=== PATIENT | female | born 1970 | race Two or more races ===

== ENCOUNTER 2016-06-30 21:58 | Emergency (ER) | payer SELFPAY ==
[2016-06-30 22:08] VITALS: BP 107/62; BMI 21.2
[2016-06-30] MEDS ORDERED: NS 1000 ML 1,000 ML ONE (22:44)
[2016-06-30] MEDS ORDERED: NS 1000 ML 1,000 ML IV ONE (22:49)
--- NOTE | 2016-06-30 23:24 | DR.GENAD ---
HPI - PCP Primary Care Physician: NFD - Complaint/Symptoms Chief Complaint Doctors Comments: I agree with statement Chief Complaint:: "Been working in the heat the last couple of days but feels weak and dehydrated. Somtimes I get dizzy and have some tightness in my chest. - Source History Provided: Patient, Other - Mode of Arrival Mode of Arrival: Wheelchair - Timing Onset of Chief Complaint: 06/27/16 PMH - PMH Past Medical History: Yes Past Medical History: Seizures Past Surgical History: No Surgical History: Appendectomy - Family History History of Family Medical Conditions: No - Social History Alcohol Use: None Do you use any recreational Drugs:: No Lives With: Family Lives Where: Home - infectious screening Have you traveled outside the country in the last 6 months?: No ROS - Review of Systems Eyes: No Symptoms Reported ENTM: No Symptoms Reported Respiratoy: No Symptoms Reported Cardiovascular: No Symptoms Reported Gastrointestinal/Abdominal: No Symptoms Reported Genitourinary: No Symptoms Reported Neurological: No Symptoms Reported Musculoskeletal: No Symptoms Reported Integumentary: No Symptoms Reported Hematologic/Lymphatic: No Symptoms Reported Endocrine: No Symptoms Reported Psychiatric: No Symptoms Reported All Other Systems: Reviewed and Negative PE - Vital Signs Vitals: Temperature 98.8 F Pulse Rate 89 Respiratory Rate 18 Blood Pressure 107/62 O2 Sat by Pulse Oximetry 98 - General Limitations: Language Barrier General Appearance: Lethargic - Head Head Exam: Normal Inspection, Atraumatic - Eyes Eye exam: Normal Appearance, PERRL, EOMI - ENT ENT Exam: Normal Exam External Ear Exam: Normal External Inspection TM/Canal Exam: Bilateral Normal Nose Exam: Normal Nose Exam Mouth Exam: Normal Inspection Throat Exam: Normal Inspection - Neck Neck Exam: Normal Inspection - Chest Chest Inspection: Normal Inspection - Respiratory Respiratory Exam: Normal Lung Sounds Bilat Respiratory Exam: Bilateral Clear to Auscultation - Cardiovascular Cardiovascular Exam: Regular Rate - Abdominal Exam Abdominal Exam: Normal Inspection Abdominal Tenderness: negative: RUQ, RLQ, LUQ, LLQ, Epigastrium, Suprapubic, Diffuse, Mild, Moderate, Severe, Other - Extremities Extremities Exam: Normal Inspection, Full ROM - Back Back Exam: Normal Inspection - Neurologic Neurological Exam: Alert, Oriented X3 - Psychiatric Psychiatric Exam: Normal Affect, Normal Mood - Skin Skin Exam: Warm, Dry, Intact ROR - Labs Reviewed Result Diagrams: 06/30/16 23:10 06/30/16 23:10 Laboratory: WBC 11.4 X10^3/uL (3.6-10.0) H 06/30/16 23:10 RBC 4.12 X10^6/uL (3.5-5.4) 06/30/16 23:10 Hgb 11.6 g/dL (12.0-16.0) L 06/30/16 23:10 Hct 35.3 % (36.0-47.0) L 06/30/16 23:10 MCV 85.7 fL (80.0-100.0) 06/30/16 23:10 MCH 28.2 pg (27.0-34.0) 06/30/16 23:10 MCHC 32.9 g/dL (33.0-35.0) L 06/30/16 23:10 RDW 12.6 % (11.6-16.5) 06/30/16 23:10 Plt Count 222 X10^3/uL (150.0-450.0) 06/30/16 23:10 MPV 9.9 fL (7.4-11.0) 06/30/16 23:10 Neut % 72.2 % (42.0-75.0) 06/30/16 23:10 Lymph % 14.3 % (21.0-51.0) L 06/30/16 23:10 Potter % 7.2 % (0.0-13.0) 06/30/16 23:10 Eos % 5.6 % (0.9-2.9) H 06/30/16 23:10 Baso % 0.7 % (0.2-1.0) 06/30/16 23:10 Neut # 8.2 x10^3/uL (2.2-4.8) H 06/30/16 23:10 Lymph # 1.6 X10^3/uL (1.3-2.9) 06/30/16 23:10 Potter # 0.8 x10^3/uL (0.3-0.8) 06/30/16 23:10 Eos # 0.6 x10^3/uL (0.0-0.2) H 06/30/16 23:10 Baso # 0.1 X10^3/uL (0.0-0.1) 06/30/16 23:10 Absolute Nucleated RBC 0.0 /100WBC 06/30/16 23:10 Sodium 141 mmol/L (136-145) 06/30/16 23:10 Corrected Sodium TNP 06/30/16 23:10 Potassium 3.5 mmol/L (3.5-5.1) 06/30/16 23:10 Chloride 107 mmol/L (98-107) 06/30/16 23:10 Carbon Dioxide 24.9 mmol/L (21-32) 06/30/16 23:10 BUN 14 mg/dL (7-18) 06/30/16 23:10 Creatinine 0.55 mg/dL (0.55-1.02) 06/30/16 23:10 Est GFR (MDRD) Af Amer > 60 (>60) 06/30/16 23:10 Est GFR (MDRD) Non-Af > 60 (>60) 06/30/16 23:10 Glucose 103 mg/dL (65-99) H 06/30/16 23:10 Calcium 8.4 mg/dL (8.5-10.1) L 06/30/16 23:10 Corrected Calcium 9.4 mg/dL (8.5-10.1) 06/30/16 23:10 Total Bilirubin 0.20 mg/dL (0.2-1.0) 06/30/16 23:10 AST 15 Units/L (15-37) 06/30/16 23:10 ALT 17 Units/L (12-78) 06/30/16 23:10 Alkaline Phosphatase 85 Units/L (46-116) 06/30/16 23:10 Total Protein 6.7 g/dL (6.4-8.2) 06/30/16 23:10 Albumin 2.8 g/dL (3.4-5.0) L 06/30/16 23:10 Globulin 3.9 g/dL (2.5-4.5) 06/30/16 23:10 Albumin/Globulin Ratio 0.7 Ratio (1.1-2.1) L 06/30/16 23:10 Specimen Type Clean catch urine 07/01/16 00:19 Urine Color Pale yellow (YELLOW) 07/01/16 00:19 Urine Appearance Clear (CLEAR) 07/01/16 00:19 Urine pH 7.0 (5.0 - 8.0) 07/01/16 00:19 Ur Specific [place] 1.010 (1.000-1.030) 07/01/16 00:19 Urine Protein Negative (NEGATIVE) 07/01/16 00:19 Urine Glucose (UA) Negative (NEGATIVE) 07/01/16 00:19 Urine Ketones Negative (NEGATIVE) 07/01/16 00: Urine Occult Blood Negative (NEGATIVE) 07/01/16 00: Urine Nitrite Negative (NEGATIVE) 07/01/16 00: Urine Bilirubin Negative (NEGATIVE) 07/01/16 00: Urine Urobilinogen Normal (NORMAL) 07/01/16 00:19 Ur Leukocyte Esterase Negative (NEGATIVE) 07/01/16 00: Urine RBC 0-3 /HPF (NEGATIVE) 07/01/16 00:19 Urine WBC 0-3 /HPF (NEGATIVE) 07/01/16 00:19 Ur Squamous Epith Cells Rare /HPF (NEGATIVE) 07/01/16 00: Urine Bacteria Negative /HPF (NEGATIVE) 07/01/16 00:19 Ur Culture Indicated? No/not ordered 07/01/16 00:19 - Diagnosis Discharge Problem: Dehydration, mild - Discharge Plan Condition: Stable - Follow ups/Referrals Follow ups/Referrals: NFD,None [Primary Care Provider] - 3 days - Instructions
[2016-06-30 23:25] LABS: BASOPHILS # (AUTO) 0.1 X10^3/uL (0.0-0.1); BASOPHILS % (AUTO) 0.7 % (0.2-1.0); EOSINOPHILS # (AUTO) 0.6 x10^3/uL (0.0-0.2); EOSINOPHILS % (AUTO) 5.6 % (0.9-2.9); HEMATOCRIT 35.3 % (36.0-47.0); HEMOGLOBIN 11.6 g/dL (12.0-16.0); LYMPHOCYTES # (AUTO) 1.6 X10^3/uL (1.3-2.9); LYMPHOCYTES % (AUTO) 14.3 % (21.0-51.0); MEAN CORPUSCULAR HEMOGLOBIN 28.2 pg (27.0-34.0); MEAN CORPUSCULAR HGB CONC 32.9 g/dL (33.0-35.0); MEAN CORPUSCULAR VOLUME 85.7 fL (80.0-100.0); MEAN PLATELET VOLUME 9.9 fL (7.4-11.0); MONOCYTES # (AUTO) 0.8 x10^3/uL (0.3-0.8); MONOCYTES % (AUTO) 7.2 % (0.0-13.0); NEUTROPHILS # (AUTO) 8.2 x10^3/uL (2.2-4.8); NEUTROPHILS % (AUTO) 72.2 % (42.0-75.0); PLATELET COUNT 222 X10^3/uL (150.0-450.0); RED BLOOD COUNT 4.12 X10^6/uL (3.5-5.4); RED CELL DISTRIBUTION WIDTH 12.6 % (11.6-16.5); WHITE BLOOD COUNT 11.4 X10^3/uL (3.6-10.0)
[2016-06-30 23:30] LABS: ALANINE AMINOTRANSFERASE 17 Units/L (12-78); ALBUMIN 2.8 g/dL (3.4-5.0); ALKALINE PHOSPHATASE 85 Units/L (46-116); ASPARTATE AMINO TRANSFERASE 15 Units/L (15-37); BLOOD UREA NITROGEN 14 mg/dL (7-18); CALCIUM 8.4 mg/dL (8.5-10.1); CARBON DIOXIDE 24.9 mmol/L (21-32); CHLORIDE 107 mmol/L (98-107); COR CA(FOR HYPOALB) 9.4 mg/dL (8.5-10.1); CREATININE 0.55 mg/dL (0.55-1.02); GLUCOSE 103 mg/dL (65-99); SODIUM 141 mmol/L (136-145); TOTAL PROTEIN 6.7 g/dL (6.4-8.2); eGFR BLACK RACES > 60 (>60); eGFR NON BLACK RACES > 60 (>60)
[2016-07-01 00:40] LABS: BILIRUBIN,URINE NEGATIVE (NEGATIVE); BLOOD/HEMOGLOBIN,URINE NEGATIVE (NEGATIVE); GLUCOSE, URINE NEGATIVE (NEGATIVE); KETONES,URINE NEGATIVE (NEGATIVE); LEUKOCYTE ESTERASE ,URINE NEGATIVE (NEGATIVE); NITRITES,URINE NEGATIVE (NEGATIVE); PROTEIN,URINE NEGATIVE (NEGATIVE); UROBILINOGEN,URINE NORMAL (NORMAL)
[2016-07-01 00:54] LABS: COLOR,URINE PALE YELLOW (YELLOW)
[2016-07-01 00:55] LABS: APPEARANCE,URINE CLEAR (CLEAR); BACTERIA,URINE NEGATIVE /HPF (NEGATIVE); RBC,URINE 0-3 /HPF (NEGATIVE); SQUAMOUS EPITHELIAL CELL,UR RARE /HPF (NEGATIVE)
== END 2016-07-01 01:28 | disposition home or self-care (01) ==
LOC: ER 21:58
DX: E86.0 Dehydration (principal)
CPT/HCPCS: 36415; 80053; 81001; 85025; 96365; 99283; A4222